=== PATIENT | male | born 1975 | race Caucasian/White ===

== ENCOUNTER 2018-06-03 18:31 | Inpatient (IN) | payer OTHER, BC ==
[2018-06-03 20:27] LABS: URINE BLOOD (Dip) POC Trace-intact (NEGATIVE); URINE KETONES (Dip) POC 3+ (NEGATIVE); URINE LEUKOCYTE EST (Dip) POC Negative (NEGATIVE); URINE NITRITE (Dip) POC Negative (NEGATIVE); URINE TOTAL PROTEIN POC Negative (NEGATIVE)
[2018-06-03] MEDS: SOD CHLORIDE 0.9% 1,000 ML IV (20:52)
[2018-06-03 20:53] LABS: ADD MAN DIFF? NO
[2018-06-03 20:56] LABS: BASOPHIL # 0.1 10^3/ul (0.0-0.1); BASOPHILS % 0.6 % (0.0-2.0); EOSINOPHILS # 0.3 10^3/ul (0.0-0.5); EOSINOPHILS % 2.1 % (0.0-7.0); HEMATOCRIT 44.4 % (42.0-52.0); HEMOGLOBIN 16.2 g/dl (14.0-18.0); LYMPHOCYTES % 13.9 % (15.0-51.0); MEAN CORPUSCULAR HEMOGLOBIN 29.6 pg (29.0-33.0); MEAN CORPUSCULAR HGB CONC 36.5 g/dl (32.0-37.0); MEAN PLATELET VOLUME 11.7 fl (7.4-10.4); MONOCYTES % 7.1 % (0.0-11.0); NEUTROPHIL # 10.6 10^3/ul (1.6-7.5); NEUTROPHILS % 75.7 % (39.0-77.0); PLATELET COUNT 266 10^3/UL (140-415); RED BLOOD COUNT 5.48 10^6/ul (4.70-6.10); RED CELL DISTRIBUTION WIDTH 11.7 % (11.5-14.5)
[2018-06-03 21:14] LABS: ANION GAP 20 (5-13); BLOOD UREA NITROGEN 14 mg/dl (7-20); CALCIUM 9.6 mg/dl (8.4-10.2); CARBON DIOXIDE 20 mmol/L (21-31); CHLORIDE 91 mmol/L (97-110); CREATININE 1.09 mg/dl (0.61-1.24); Estimated GFR > 60 mL/min (>60); MAGNESIUM 1.9 mg/dl (1.7-2.5); POTASSIUM 4.9 mmol/L (3.5-5.1); SODIUM 131 mmol/L (135-144)
[2018-06-03 21:22] LABS: GLUCOSE 763 mg/dl (70-220)
[2018-06-03 21:25] LABS: ADD UMIC NO; UR ASCORBIC ACID NEGATIVE (NEGATIVE); UR BILIRUBIN (Dip) NEGATIVE (NEGATIVE); UR BLOOD (Dip) NEGATIVE (NEGATIVE); UR CLARITY CLEAR (CLEAR); UR COLOR STRAW (YELLOW); UR GLUCOSE (Dip) 3+ mg/dL (NEGATIVE); UR KETONES (Dip) 2+ mg/dL (NEGATIVE); UR LEUKOCYTE ESTERASE (Dip) NEGATIVE Leu/ul (NEGATIVE); UR NITRITE (Dip) NEGATIVE (NEGATIVE); UR TOTAL PROTEIN (Dip) NEGATIVE (NEGATIVE); UR UROBILINOGEN (Dip) NEGATIVE (NEGATIVE)
[2018-06-03 21:53] LABS: MODE ROOM AIR; MetHgb Venous 0.1 %; Sample Type Blood venous; Site VENOUS LINE; Venous Fraction OxyHgb 47.3 %; Venous Oxygen Sat 47.8 mmHG (55.0-75.0); Venous Total Hemglobin 15.8 g/dl
[2018-06-03] MEDS ORDERED: SOD CHLORIDE 0.9% 1,000 ML IV (22:30)
[2018-06-03] MEDS ORDERED: POTASSIUM CHLORIDE 40 MEQ in SOD CHLORIDE 0.9% 1,000 ML IV (22:30)
[2018-06-03] MEDS ORDERED: DEXTROSE 50% 50 ML SYRINGE IV ×2 (22:30)
[2018-06-03] MEDS ORDERED: SODIUM CHLORIDE 23.4% 77 MEQ in DEXTROSE 10% 1,000 ML IV (22:30)
[2018-06-03] MEDS ORDERED: SODIUM CHLORIDE 23.4% 77 MEQ, POTASSIUM CHLORIDE 40 MEQ in DEXTROSE 10% 1,000 ML IV (22:30)
[2018-06-03 22:51] LABS: HEMOGLOBIN A1C 11.8 % (0-5.9)
[2018-06-03] MEDS ORDERED: ONDANSETRON 4 MG INJ IV (23:00)
[2018-06-03] MEDS: LACTATED RINGER'S 1,000 ML IV (23:01)
[2018-06-03] MEDS: INSULIN REGULAR, HUMAN 100 UNIT in SOD CHLORIDE 0.9% 100 ML IV (23:51)
[2018-06-04] MEDS: POTASSIUM CHLORIDE 30 MEQ in SOD CHLORIDE 0.9% 1,000 ML IV ×2 (00:33→05:41)
[2018-06-04 00:50] LABS: MODE ROOM AIR; MetHgb Venous 0.2 %; Sample Type Blood venous; Site VENOUS LINE; Venous Fraction OxyHgb 87.8 %; Venous Oxygen Sat 88.9 mmHG (55.0-75.0); Venous Total Hemglobin 15.6 g/dl
[2018-06-04 01:40] LABS: ANION GAP 18 (5-13); BLOOD UREA NITROGEN 12 mg/dl (7-20); CARBON DIOXIDE 18 mmol/L (21-31); CHLORIDE 103 mmol/L (97-110); CREATININE 0.81 mg/dl (0.61-1.24); Estimated GFR > 60 mL/min (>60); MAGNESIUM 1.9 mg/dl (1.7-2.5); POTASSIUM 3.7 mmol/L (3.5-5.1); SODIUM 139 mmol/L (135-144)
[2018-06-04] MEDS: SODIUM CHLORIDE 23.4% 77 MEQ, POTASSIUM CHLORIDE 30 MEQ in DEXTROSE 10% 1,000 ML IV ×2 (01:43→09:43)
[2018-06-04 01:51] LABS: GLUCOSE 403 mg/dl (70-220)
[2018-06-04 02:43] LABS: MODE ROOM AIR; MetHgb Venous 0.2 %; Sample Type Blood venous; Site VENOUS LINE; Venous COHb 0.8 %; Venous Fraction OxyHgb 92.4 %; Venous Oxygen Sat 93.3 mmHG (55.0-75.0); Venous Total Hemglobin 15.3 g/dl
[2018-06-04 03:19] LABS: ANION GAP 15 (5-13); BLOOD UREA NITROGEN 11 mg/dl (7-20); CARBON DIOXIDE 21 mmol/L (21-31); CHLORIDE 107 mmol/L (97-110); CREATININE 0.73 mg/dl (0.61-1.24); Estimated GFR > 60 mL/min (>60); GLUCOSE 267 mg/dl (70-220); PHOSPHORUS 1.9 mg/dl (2.5-4.9); POTASSIUM 3.7 mmol/L (3.5-5.1); SODIUM 143 mmol/L (135-144)
[2018-06-04 05:13] LABS: MODE ROOM AIR; MetHgb Venous 0.2 %; Sample Type Blood venous; Site VENOUS LINE; Venous Fraction OxyHgb 90.6 %; Venous Oxygen Sat 91.7 mmHG (55.0-75.0); Venous Total Hemglobin 15.1 g/dl
[2018-06-04 05:31] LABS: ADD MAN DIFF? NO
[2018-06-04 05:39] LABS: WHITE BLOOD COUNT 10.1 10^3/ul (4.8-10.8)
[2018-06-04 05:39] LABS: BASOPHIL # 0.1 10^3/ul (0.0-0.1); BASOPHILS % 0.7 % (0.0-2.0); EOSINOPHILS # 0.6 10^3/ul (0.0-0.5); EOSINOPHILS % 5.8 % (0.0-7.0); HEMOGLOBIN 13.9 g/dl (14.0-18.0); LYMPHOCYTES # 2.3 10^3/ul (0.8-2.9); LYMPHOCYTES % 22.8 % (15.0-51.0); MEAN CORPUSCULAR HEMOGLOBIN 29.4 pg (29.0-33.0); MEAN CORPUSCULAR HGB CONC 36.6 g/dl (32.0-37.0); MEAN CORPUSCULAR VOLUME 80.5 fl (82.0-101.0); MEAN PLATELET VOLUME 11.6 fl (7.4-10.4); MONOCYTE # 0.7 10^3/ul (0.3-0.9); NEUTROPHIL # 6.4 10^3/ul (1.6-7.5); NEUTROPHILS % 63.2 % (39.0-77.0); PLATELET COUNT 232 10^3/UL (140-415); RED BLOOD COUNT 4.72 10^6/ul (4.70-6.10); RED CELL DISTRIBUTION WIDTH 11.7 % (11.5-14.5)
[2018-06-04 06:06] LABS: ALANINE AMINOTRANSFERASE 40 IU/L (13-69); ALBUMIN 3.3 g/dl (3.3-4.9); ALBUMIN/GLOBULIN RATIO 1.43; ALKALINE PHOSPHATASE 128 IU/L (42-121); ANION GAP 10 (5-13); ASPARTATE AMINO TRANSFERASE 20 IU/L (15-46); BILIRUBIN,INDIRECT 0.6 mg/dl (0-1.1); BILIRUBIN,TOTAL 0.6 mg/dl (0.2-1.3); BLOOD UREA NITROGEN 11 mg/dl (7-20); CALCIUM 8.8 mg/dl (8.4-10.2); CARBON DIOXIDE 23 mmol/L (21-31); CHLORIDE 110 mmol/L (97-110); CREATININE 0.71 mg/dl (0.61-1.24); Estimated GFR > 60 mL/min (>60); GLUCOSE 185 mg/dl (70-220); POTASSIUM 3.7 mmol/L (3.5-5.1); SODIUM 143 mmol/L (135-144); TOTAL PROTEIN 5.6 g/dl (6.1-8.1)
[2018-06-04 06:07] LABS: MAGNESIUM 1.9 mg/dl (1.7-2.5)
[2018-06-04] MEDS ORDERED: HEPARIN 5,000 UNIT/0.5 ML VIAL ×2 (08:24→20:37)
[2018-06-04] MEDS: FAMOTIDINE 20 MG TAB PO ×2 (08:30→20:39)
[2018-06-04] MEDS: HEPARIN 5,000 UNIT/1 ML VIAL SC ×2 (08:36→20:47)
[2018-06-04] MEDS: INSULIN GLARGINE [LANTus] (100 UNITS/ML) SYG SC (08:36)
[2018-06-04] MEDS: INSULIN REGULAR, HUMAN 100 UNIT in SOD CHLORIDE 0.9% 100 ML IV (09:52)
[2018-06-04] MEDS: INSULIN ASPART [NOVOLOG] 3 ML PEN SC ×2 (12:13→17:20)
[2018-06-04] MEDS: ACETAMINOPHEN 325 MG TAB PO (17:42)
[2018-06-04] MEDS ORDERED: DEXTROSE 50% 50 ML SYRINGE IV ×2 (21:00)
[2018-06-04] MEDS: ACCU-CHEK XX ×3 (21:00→23:00)
[2018-06-04] MEDS: INSULIN HUMAN REGULAR 100 UNIT in SOD CHLORIDE 0.9% 99 ML IV (21:00)
[2018-06-04 21:49] LABS: ANION GAP 10 (5-13); BLOOD UREA NITROGEN 12 mg/dl (7-20); CALCIUM 8.9 mg/dl (8.4-10.2); CARBON DIOXIDE 23 mmol/L (21-31); CHLORIDE 103 mmol/L (97-110); CREATININE 0.76 mg/dl (0.61-1.24); Estimated GFR > 60 mL/min (>60); GLUCOSE 387 mg/dl (70-220); MAGNESIUM 1.8 mg/dl (1.7-2.5); PHOSPHORUS 2.6 mg/dl (2.5-4.9); POTASSIUM 3.8 mmol/L (3.5-5.1); SODIUM 136 mmol/L (135-144)
[2018-06-04] MEDS: SOD CHLORIDE 0.9% 1,000 ML IV (22:11)
[2018-06-05] MEDS: ACCU-CHEK XX ×21 (01:00→20:00)
[2018-06-05] MEDS ORDERED: ACCU-CHEK XX (02:00)
[2018-06-05 05:43] LABS: ADD MAN DIFF? NO
[2018-06-05 05:58] LABS: WHITE BLOOD COUNT 7.3 10^3/ul (4.8-10.8)
[2018-06-05 05:58] LABS: BASOPHIL # 0.1 10^3/ul (0.0-0.1); BASOPHILS % 0.8 % (0.0-2.0); EOSINOPHILS # 0.6 10^3/ul (0.0-0.5); EOSINOPHILS % 7.6 % (0.0-7.0); HEMATOCRIT 36.8 % (42.0-52.0); HEMOGLOBIN 13.4 g/dl (14.0-18.0); LYMPHOCYTES # 1.9 10^3/ul (0.8-2.9); LYMPHOCYTES % 26.2 % (15.0-51.0); MEAN CORPUSCULAR HEMOGLOBIN 29.7 pg (29.0-33.0); MEAN CORPUSCULAR HGB CONC 36.4 g/dl (32.0-37.0); MEAN CORPUSCULAR VOLUME 81.6 fl (82.0-101.0); MEAN PLATELET VOLUME 11.5 fl (7.4-10.4); MONOCYTE # 0.5 10^3/ul (0.3-0.9); MONOCYTES % 7.3 % (0.0-11.0); NEUTROPHIL # 4.2 10^3/ul (1.6-7.5); NEUTROPHILS % 57.1 % (39.0-77.0); PLATELET COUNT 200 10^3/UL (140-415); RED BLOOD COUNT 4.51 10^6/ul (4.70-6.10); RED CELL DISTRIBUTION WIDTH 12.1 % (11.5-14.5)
[2018-06-05 06:24] LABS: ANION GAP 10 (5-13); BLOOD UREA NITROGEN 11 mg/dl (7-20); CALCIUM 8.6 mg/dl (8.4-10.2); CARBON DIOXIDE 23 mmol/L (21-31); CHLORIDE 106 mmol/L (97-110); CREATININE 0.64 mg/dl (0.61-1.24); Estimated GFR > 60 mL/min (>60); GLUCOSE 235 mg/dl (70-220); POTASSIUM 3.3 mmol/L (3.5-5.1); SODIUM 139 mmol/L (135-144)
[2018-06-05 06:33] LABS: MAGNESIUM 1.7 mg/dl (1.7-2.5)
[2018-06-05 06:33] LABS: PHOSPHORUS 3.6 mg/dl (2.5-4.9)
[2018-06-05] MEDS: SOD CHLORIDE 0.9% 1,000 ML IV ×2 (07:05→17:25)
[2018-06-05] MEDS: INSULIN GLARGINE [LANTus] (100 UNITS/ML) SYG SC ×2 (08:00→16:33)
[2018-06-05] MEDS: POTASSIUM CHLORIDE 100 ML IVPB ×2 (08:03→10:17)
[2018-06-05] MEDS: MAGNESIUM SULFATE 2 GM/50 ML 50 ML IVPB (08:19)
[2018-06-05] MEDS ORDERED: HEPARIN 5,000 UNIT/0.5 ML VIAL ×2 (08:23→20:28)
[2018-06-05] MEDS: FAMOTIDINE 20 MG TAB PO ×2 (08:31→20:32)
[2018-06-05] MEDS: HEPARIN 5,000 UNIT/1 ML VIAL SC ×2 (08:33→20:34)
[2018-06-05] MEDS: INSULIN HUMAN REGULAR 100 UNIT in SOD CHLORIDE 0.9% 99 ML IV (10:20)
[2018-06-05] MEDS: INSULIN ASPART [NOVOLOG] 3 ML PEN SC ×2 (12:27→17:19)
[2018-06-05 13:26] LABS: HEPATITIS B SURFACE ANTIGEN NEGATIVE (NEGATIVE)
[2018-06-05 13:27] LABS: HEPATITIS B SURFACE ANTIBODY NEGATIVE (NEGATIVE)
[2018-06-05 13:43] LABS: HEPATITIS C VIRAL ANTIBODY NEGATIVE (NEGATIVE)
[2018-06-05] MEDS: ACETAMINOPHEN 325 MG TAB PO (15:39)
[2018-06-05] MEDS ORDERED: GLUCOSE GEL 15 GRAM TUBE BUCCAL (21:30)
[2018-06-05] MEDS ORDERED: GLUCAGON 1 MG INJ IM (21:30)
[2018-06-05] MEDS ORDERED: DEXTROSE 50% 50 ML SYRINGE IV ×2 (21:30)
[2018-06-05] MEDS ORDERED: GLUCOSE GEL 15 GRAM TUBE PO ×2 (21:30)
[2018-06-06] MEDS: INSULIN ASPART [NOVOLOG] 3 ML PEN SC ×8 (00:28→20:51)
[2018-06-06 05:29] LABS: ADD MAN DIFF? NO
[2018-06-06 05:30] LABS: BASOPHIL # 0.1 10^3/ul (0.0-0.1); EOSINOPHILS # 0.4 10^3/ul (0.0-0.5); EOSINOPHILS % 6.4 % (0.0-7.0); HEMATOCRIT 37.8 % (42.0-52.0); HEMOGLOBIN 13.4 g/dl (14.0-18.0); LYMPHOCYTES # 1.8 10^3/ul (0.8-2.9); LYMPHOCYTES % 30.3 % (15.0-51.0); MEAN CORPUSCULAR HEMOGLOBIN 29.1 pg (29.0-33.0); MEAN CORPUSCULAR HGB CONC 35.4 g/dl (32.0-37.0); MEAN CORPUSCULAR VOLUME 82.2 fl (82.0-101.0); MEAN PLATELET VOLUME 11.2 fl (7.4-10.4); MONOCYTE # 0.5 10^3/ul (0.3-0.9); MONOCYTES % 8.5 % (0.0-11.0); NEUTROPHIL # 3.1 10^3/ul (1.6-7.5); NEUTROPHILS % 52.6 % (39.0-77.0); PLATELET COUNT 210 10^3/UL (140-415); RED CELL DISTRIBUTION WIDTH 11.9 % (11.5-14.5)
[2018-06-06 05:56] LABS: ANION GAP 8 (5-13); BLOOD UREA NITROGEN 10 mg/dl (7-20); CALCIUM 8.8 mg/dl (8.4-10.2); CARBON DIOXIDE 25 mmol/L (21-31); CHLORIDE 107 mmol/L (97-110); CREATININE 0.75 mg/dl (0.61-1.24); Estimated GFR > 60 mL/min (>60); GLUCOSE 277 mg/dl (70-220); POTASSIUM 3.6 mmol/L (3.5-5.1); SODIUM 140 mmol/L (135-144)
[2018-06-06 06:00] LABS: MAGNESIUM 1.8 mg/dl (1.7-2.5)
[2018-06-06 06:00] LABS: PHOSPHORUS 3.8 mg/dl (2.5-4.9)
[2018-06-06] MEDS ORDERED: HEPARIN 5,000 UNIT/0.5 ML VIAL ×2 (08:13→20:40)
[2018-06-06] MEDS: FAMOTIDINE 20 MG TAB PO ×2 (08:26→20:50)
[2018-06-06] MEDS: HEPARIN 5,000 UNIT/1 ML VIAL SC ×2 (09:02→20:50)
[2018-06-06] MEDS: INSULIN GLARGINE [LANTus] (100 UNITS/ML) SYG SC ×2 (10:23→14:57)
[2018-06-07] MEDS ORDERED: HEPARIN 5,000 UNIT/0.5 ML VIAL ×2 (08:14→20:42)
[2018-06-07] MEDS: INSULIN ASPART [NOVOLOG] 3 ML PEN SC ×7 (08:22→20:48)
[2018-06-07] MEDS: HEPARIN 5,000 UNIT/1 ML VIAL SC ×2 (08:23→20:49)
[2018-06-07] MEDS: INSULIN GLARGINE [LANTus] (100 UNITS/ML) SYG SC (08:25)
[2018-06-07] MEDS: FAMOTIDINE 20 MG TAB PO ×2 (08:26→20:47)
[2018-06-07 15:26] LABS: C-PEPTIDE 0.98 ng/mL (0.80-3.85)
[2018-06-08] MEDS ORDERED: HEPARIN 5,000 UNIT/0.5 ML VIAL ×2 (08:26→20:27)
[2018-06-08] MEDS: FAMOTIDINE 20 MG TAB PO ×2 (08:38→20:35)
[2018-06-08] MEDS: HEPARIN 5,000 UNIT/1 ML VIAL SC ×2 (08:39→21:00)
[2018-06-08] MEDS: INSULIN GLARGINE [LANTus] (100 UNITS/ML) SYG SC (08:40)
[2018-06-08] MEDS: INSULIN ASPART [NOVOLOG] 3 ML PEN SC ×7 (08:41→21:00)
[2018-06-09] MEDS ORDERED: INSULIN GLARGINE [LANTus] (100 UNITS/ML) SYG SC (08:00)
[2018-06-11 00:37] LABS: GAD 65 ANTIBODY <5 IU/mL (<5)
[2018-06-11 11:46] LABS: INSULIN AUTOANTIBODY <0.4 U/mL (<0.4)
== END 2018-06-08 21:10 | disposition home or self-care (01) | DRG 639 ==
LOC: 6WM 06-06 06:57 → FTE 18:31 → 5EC 06-06 17:58 → ICU 22:33
PROVIDERS: Internal Medicine
DX: E10.10 Type 1 diabetes mellitus with ketoacidosis without coma (principal); F15.10 Other stimulant abuse, uncomplicated; F25.9 Schizoaffective disorder, unspecified; Z87.891 Personal history of nicotine dependence
CPT/HCPCS: 36415; 80048; 80053; 81003; 82803; 82962; 83036; 83735; 84100; 84443; 84681; 85025; 86337; 86341; 86706; 86708; 86803; 87081; 87340; 99291-25